=== PATIENT | male | born 1955 | race Two or more races ===

== ENCOUNTER 2024-10-19 16:38 | Inpatient (IN) | payer MEDICARE, BC ==
[~2024-10-19] VITALS: Ht 175.3 cm; Wt 86.2 kg
[2024-10-19 20:07] VITALS: BP 107/69; TEMP 99.6; O2SAT 78
[2024-10-19] MEDS ORDERED: PANT40TA2 PO (20:37)
[2024-10-19] MEDS ORDERED: NA P133E RC (20:37)
[2024-10-19] MEDS ORDERED: DOCU-141 PO (20:37)
[2024-10-19] MEDS ORDERED: ACET650T10 PO (20:37)
[2024-10-19] MEDS ORDERED: ENOX40DI SQ (20:37)
[2024-10-19] MEDS ORDERED: HYDR-3980 PO (20:37)
[2024-10-19] MEDS ORDERED: ACID1TAB4 PO (20:37)
[2024-10-19] MEDS ORDERED: CLON0.5T PO (20:37)
[2024-10-19] MEDS ORDERED: ZOLP5TAB2 PO (20:37)
[2024-10-19] MEDS ORDERED: METH-806 PO (20:37)
[2024-10-19] MEDS ORDERED: HYDR-3972 PO (20:37)
[2024-10-19] MEDS ORDERED: POLY17PO52 PO (20:37)
[2024-10-19] MEDS ORDERED: MAGN400O6 PO (20:37)
[2024-10-19] MEDS ORDERED: MAG-89 PO (20:37)
[2024-10-19] MEDS ORDERED: BISA10SU95 RC (20:37)
[2024-10-19] MEDS ORDERED: METHOCARBAMOL 500 MG TABLET PO PRN (22:15)
[2024-10-19] MEDS ORDERED: FLEET ENEMA 133 ML BOTTLE RC SCH (22:15)
[2024-10-19] MEDS ORDERED: MAGNESIUM HYDROXIDE 30 ML LIQUID UDC PO PRN (22:15)
[2024-10-19] MEDS ORDERED: HYDROCODONE/APAP 10-325 MG TABLET PO PRN (22:15)
[2024-10-19] MEDS: CLONAZEPAM 0.5 MG TABLET PO PRN (22:20)
[2024-10-19] MEDS: ACETAMINOPHEN 325 MG TABLET PO PRN (22:23)
[2024-10-20] MEDS: HYDROCODONE/APAP 10-325 MG TABLET PO PRN (02:43)
[2024-10-20] MEDS: MIRALAX 17 GM POWD.PACK PO PRN (02:51)
[2024-10-20 05:58] VITALS: BP 111/66; TEMP 98.6; O2SAT 99
[2024-10-20] MEDS: PANTOPRAZOLE SODIUM 40 MG TABLET.DR PO SCH (06:39)
[2024-10-20] MEDS: DOCUSATE SODIUM 100 MG CAPSULE PO SCH (08:12)
[2024-10-20] MEDS: ACIDOPHILUS/BULGARICUS CHEW TAB PO SCH (08:12)
[2024-10-20] MEDS: ENOXAPARIN SODIUM 40 MG/0.4 ML DISP.SYRIN SQ SCH (08:21)
[2024-10-20] MEDS ORDERED: BISO5TAB20 PO (14:42)
[2024-10-20] MEDS ORDERED: FLEET ENEMA 133 ML BOTTLE RC PRN (14:59)
[2024-10-20 15:28] VITALS: BP 113/65; TEMP 99; O2SAT 96
[2024-10-20 20:00] VITALS: BP 119/61; TEMP 98.5; O2SAT 95
[2024-10-20] MEDS: BISACODYL 10 MG SUPP.RECT RC PRN (21:47)
[2024-10-21 08:56] LABS: BASOPHILS % (AUTO) 0.3 % (0.0-2.0); EOSINOPHILS # (AUTO) 0.1 K/uL (0.0-0.7); EOSINOPHILS % (AUTO) 1.9 % (0.0-7.0); HEMATOCRIT 25.6 % (36.7-47.1); HEMOGLOBIN 8.4 g/dL (12.5-16.3); LYMPHOCYTES # (AUTO) 1.1 K/uL (0.8-4.8); LYMPHOCYTES % (AUTO) 18.2 % (20.5-51.5); MEAN CORPUSCULAR HEMOGLOBIN 20.5 uug (23.8-33.4); MEAN CORPUSCULAR HGB CONC 33 g/dL (32.5-36.3); MEAN CORPUSCULAR VOLUME 62.5 fL (73.0-96.2); MONOCYTES # (AUTO) 0.5 K/uL (0.1-1.30); MONOCYTES % (AUTO) 8.8 % (0.0-11.0); NEUTROPHILS # (AUTO) 4.3 K/uL (1.8-8.9); NEUTROPHILS % (AUTO) 70.8 % (38.5-71.5); PLATELET COUNT (AUTO) 190 K/uL (152-348); RED CELL DISTRIBUTION WIDTH 15.5 % (12.1-16.2); WHITE BLOOD COUNT (AUTO) 6.1 K/uL (3.6-10.2)
[2024-10-21 09:00] LABS: CALCIUM 8.4 mg/dL (8.5-10.1); CREATININE 0.9 mg/dL (0.6-1.3); POTASSIUM 4.2 mmol/L (3.5-5.1)
[2024-10-21 09:12] LABS: DIFFERENTIAL COMMENT 1
[2024-10-21 11:01] LABS: LYMPHOCYTES % (MANUAL) 18 % (20-40); MONOCYTES % (MANUAL) 9 % (2-10); NEUTROPHILS % (MANUAL) 71 % (42-75)
[2024-10-21 11:02] LABS: ANISOCYTOSIS 1+; EOSINOPHILS % (MANUAL) 2 % (0-8); HYPOCHROMASIA 2+; PLATELET ESTIMATE ADEQUATE
[2024-10-21 13:30] VITALS: O2SAT 96
[2024-10-21] MEDS: HYDROCODONE/APAP 5-325MG TABLET PO PRN (14:16)
[2024-10-21 16:04] VITALS: BP 112/67; TEMP 98.3; O2SAT 98
[2024-10-21 21:28] VITALS: BP 118/73; TEMP 98.8; O2SAT 97
[2024-10-22] MEDS: FLEET ENEMA 133 ML BOTTLE RC PRN (00:39)
[2024-10-22 06:29] VITALS: BP 111/63; TEMP 98.4; O2SAT 96
[2024-10-22] MEDS ORDERED: OXYCODONE HCL 20 MG/1 ML LIQUID UDC PO PRN (12:00)
[2024-10-22] MEDS: KETOROLAC TROMETHAMINE 30 MG INJ IM ONE (12:17)
[2024-10-22 15:30] VITALS: BP 128/58; TEMP 98.2; O2SAT 99
[2024-10-22 20:13] VITALS: TEMP 99.4
[2024-10-23 00:09] LABS: *BILIRUBIN,URIN NEGATIVE (NEGATIVE); *BLOOD, URINE NEGATIVE (NEGATIVE); *CLARITY,URINE CLEAR (CLEAR); *COLOR,URINE YELLOW (YELLOW); *KETONES,URINE NEGATIVE (NEGATIVE); *PROTEIN,URINE NEGATIVE (NEGATIVE); LEUKOCYTE ESTERASE ,URINE NEGATIVE (NEGATIVE); NITRITE, URINE NEGATIVE (NEGATIVE); PH,URINE 6.5 (5.0-8.0); UGLUCOSE NEGATIVE (NEGATIVE)
[2024-10-23 00:47] LABS: BACTERIA,URINE FEW /HPF (NONE SEEN); RBC,URINE NONE SEEN /HPF (0-3); WBC,URINE 0-3 /HPF (0-3)
[2024-10-23 00:48] LABS: CALCIUM OXALATE CRYSTALS,UR FEW /HPF (NONE SEEN)
[2024-10-23] MEDS: OXYCODONE HCL 5 MG TABLET PO PRN (03:33)
[2024-10-23 05:25] VITALS: TEMP 98
[2024-10-23 20:00] VITALS: BP 112/68; TEMP 99.2; O2SAT 100
[2024-10-24 06:00] VITALS: BP 121/73; TEMP 98.6; O2SAT 98
[2024-10-24 15:00] VITALS: BP 113/75; TEMP 98; O2SAT 100
[2024-10-24 20:54] VITALS: BP 130/76; TEMP 98.5; O2SAT 100
[2024-10-25 06:35] VITALS: BP 108/67; TEMP 97.8; O2SAT 95
[2024-10-25 16:13] VITALS: BP 124/70; TEMP 98.3; O2SAT 100
[2024-10-25 20:11] VITALS: BP 116/62; TEMP 98.4; O2SAT 100
[2024-10-26 06:43] VITALS: BP 120/69; TEMP 97.8; O2SAT 100
[2024-10-26 16:11] VITALS: BP 116/75; TEMP 98.6; O2SAT 98
[2024-10-26 21:13] VITALS: BP 115/69; TEMP 98.5; O2SAT 100
[2024-10-26] MEDS: ZOLPIDEM 5 MG TABLET PO PRN (22:36)
[2024-10-27 05:54] VITALS: BP 107/59; TEMP 98.1; O2SAT 100
[2024-10-27 08:47] LABS: BASOPHILS % (AUTO) 0.4 % (0.0-2.0); EOSINOPHILS # (AUTO) 0.1 K/uL (0.0-0.7); HEMATOCRIT 27.6 % (36.7-47.1); HEMOGLOBIN 8.9 g/dL (12.5-16.3); LYMPHOCYTES # (AUTO) 1.4 K/uL (0.8-4.8); LYMPHOCYTES % (AUTO) 21.5 % (20.5-51.5); MEAN CORPUSCULAR HEMOGLOBIN 20.3 uug (23.8-33.4); MEAN CORPUSCULAR HGB CONC 32 g/dL (32.5-36.3); MEAN CORPUSCULAR VOLUME 62.9 fL (73.0-96.2); MONOCYTES # (AUTO) 0.6 K/uL (0.1-1.30); MONOCYTES % (AUTO) 9.2 % (0.0-11.0); NEUTROPHILS # (AUTO) 4.5 K/uL (1.8-8.9); NEUTROPHILS % (AUTO) 66.9 % (38.5-71.5); PLATELET COUNT (AUTO) 379 K/uL (152-348); RED BLOOD CELL COUNT(AUTO) 4.39 MIL/uL (4.06-5.63); RED CELL DISTRIBUTION WIDTH 15.7 % (12.1-16.2); WHITE BLOOD COUNT (AUTO) 6.7 K/uL (3.6-10.2)
[2024-10-27 09:07] LABS: DIFFERENTIAL COMMENT 1
[2024-10-27 16:05] VITALS: BP 141/61; TEMP 98.2; O2SAT 99
[2024-10-27 20:02] VITALS: BP 106/68; TEMP 98.5; O2SAT 99
[2024-10-28 06:20] VITALS: BP 119/71; TEMP 98.1; O2SAT 99
[2024-10-28] MEDS: LIDOCAINE 5% PATCH TD SCH (11:27)
[2024-10-28 13:19] VITALS: BP 114/71; TEMP 98.6; O2SAT 100
[2024-10-28] MEDS ORDERED: POLYVINYL ALCOHOL OPHT DROPS 15 ML BOTTLE EACHEYE PRN (13:45)
[2024-10-28 16:07] VITALS: BP 107/61; TEMP 98.9; O2SAT 96
[2024-10-28 20:58] VITALS: BP 126/67; TEMP 98.6; O2SAT 100
[2024-10-29 07:16] VITALS: BP 110/65; TEMP 98.2; O2SAT 99
[2024-10-29] MEDS ORDERED: LIDOCAINE 5% PATCH TD SCH (09:00)
[2024-10-29 16:05] VITALS: BP 106/58; TEMP 97.8; O2SAT 100
[2024-10-29 20:00] VITALS: BP 126/67; TEMP 98.4; O2SAT 100
[2024-10-30 05:00] VITALS: BP 112/61; TEMP 97.9; O2SAT 99
[2024-10-30] MEDS: ALKA SELTZER PO PRN (10:43)
[2024-10-30 16:00] VITALS: BP 104/55; TEMP 97.9; O2SAT 100
[2024-10-30 21:17] VITALS: BP 114/70; TEMP 97.9; O2SAT 99
[2024-10-30] MEDS: FLUTICASONE PROPIONATE NS PRN (22:36)
[2024-10-30] MEDS: [UNRECOGNIZED DRUG - OTHER] NS PRN (22:36)
[2024-10-30] MEDS: VOLTAREN 1% TOP PRN (22:38)
[2024-10-31 06:42] VITALS: BP 104/65; TEMP 99.2; O2SAT 97
[2024-10-31 10:41] VITALS: TEMP 99.2
[2024-10-31] MEDS: MAG HYDROX/AL HYDROX/SIMETH 30 ML LIQUID UDC PO PRN (11:25)
== END 2024-10-31 16:00 | disposition home health service (06) | DRG 560 ==
LOC: EDBD 16:38
PROVIDERS: ADMIT Physical Medicine & Rehabilitation Pain Medicine; ATTEND Physical Medicine & Rehabilitation Pain Medicine
DX: S72.142D Displaced intertrochanteric fracture of left femur, subsequent encounter for closed fracture with routine healing (principal); N17.9 Acute kidney failure, unspecified; W19.XXXD Unspecified fall, subsequent encounter; D64.9 Anemia, unspecified; E86.9 Volume depletion, unspecified; I10 Essential (primary) hypertension; M89.8X9 Other specified disorders of bone, unspecified site; Z90.49 Acquired absence of other specified parts of digestive tract; F32.A Depression, unspecified; Z88.8 Allergy status to other drugs, medicaments and biological substances
CPT/HCPCS: 36415; 70030-TC; 73502; 85025; 94760; 97535-GO-CO; A4663; J1650; J1885